=== PATIENT | male | born 1965 | race Caucasian/White ===

== ENCOUNTER 2024-02-09 13:33 | Inpatient (IN) | payer OTHER, SELFPAY ==
[2024-02-09] VITALS (10 sets, daily range): BP systolic 123–175; BP diastolic 77–98; BMI 26.6
[2024-02-09 08:32] LABS: Urine Albumin Negative (Neg - Trace); Urine Bilirubin Negative (Negative); Urine Character Clear (Clear); Urine Color Yellow; Urine Glucose Negative (Negative); Urine Ketone Trace (Negative); Urine Leukocyte Negative (Negative); Urine Nitrite Negative (Negative); Urine Occult Blood Negative (Negative); Urine Urobilinogen Negative (Neg - 1+)
--- NOTE | 2024-02-09 08:53 | ED.GENMED ---
History of Present Illness
General
Chief Complaint: Back Pain
Source: patient
Exam Limitations: none
Time Seen by Provider: 02/09/24 08:41
Nursing documentation reviewed up to this point in time: agreed with
History of Present Illness
History of Present Illness:
58-year-old male presents emergency department complaining of left flank pain several days ago, and no difficulty urinating. He has a history of kidney stones, and a kidney stone was seen on x-ray several weeks ago.
Past History
Past History
ED Past Medical History: Other (Kidney stones)
ED Past Surgical History: and Urological (Ureteroscopy and stone removal)
Review of Systems
Review of Systems
Allergies reviewed?: Yes
All Other Systems: Not applicable
Constitutional: Reports no symptoms; Denies fever
EENT: Reports no symptoms
Respiratory: Reports no symptoms
Cardiac: Reports no symptoms
ABD/GI: Reports no symptoms
: Reports flank pain, difficulty voiding and urgency
Musculoskeletal: Reports no symptoms
Skin: Reports no symptoms
Neurological: Reports no symptoms
Endocrine: Reports no symptoms
Hematologic/Lymphatic: Reports no symptoms
Psychiatric: Reports no symptoms
Phy Exam
Physical Exam
Physical Exam:
Physical Exam
General: no apparent distress, not acutely ill
Neck: supple. no meningeal signs. normal posterior pharynx
Heart: equal radial pulses.
HEENT: Pupils equal round reactive to light, EOMI
Lungs: no acute respiratory distress. clear bilaterally
Abdomen: normal bowel sounds. not tender. no CVAT, suprapubic tenderness, Kat in place draining over 600 mL yellow urine
Neuro: alert and oriented. no focal neurological deficits
Skin: no rash
Psychiatric: well kept. interactive and cooperative
Extremities: no edema. good distal pulses
Course
Orders/Labs/Results
Orders:
Orders
02/09/24 Breakfast
NPO
Allow oral meds: No
Allow clear liquids: No
02/09/24 08:22
Urinalysis Reflex To Culture Urgent
Date Specimen was Collected: 02/09/24
Time Specimen was Collected: 08:20
02/09/24 08:29
Lidocaine 2% [Lidocaine Uro-Jet 2%] 1 syringe .ROUTE .STK-MED ONE
02/09/24 08:51
CT Abd/pel Without Iv Or Oral Urgent
Comment:
Reason For Exam: left flank pain, urinary retention
02/09/24 09:32
IV Insert/Care/Rem.- Treatment PRN
02/09/24 09:41
Complete Blood Count/With Diff Urgent
Comprehensive Metabolic Panel Urgent
02/09/24 12:44
IRAD CONSULT Routine
Consulting Provider: Dank Casiano
Was physician already notified: Yes
Reason for Consult/Procedure: Left Nephrostomy
Acknowledgement that appropriate orders are entered: N/A
02/09/24 12:47
ColoRectal Surgery Consult Routine
Consulting Provider: Jorge Esquivel
Was physician already notified: Yes
UROLOGY CONSULT Routine
Consulting Provider: Ismael Miranda
Was physician already notified: Yes
02/09/24 12:51
Admit/Transfer Patient As Directed
Co-Sign Provider:
Level of Care: Inpatient admission
Assign to:: Medical/Surgical
Physician / Group: Josh
Diagnosis: Ureteral obstruction, Rectal Mass
Reason for Hospitalization: Nephrostomy tube, colonoscopy, rectal mass work-up
Expected length of stay greater than two midnights?: Yes
ELOS- Estimated Length of Stay in days: 3
I certify the patient meets the requirements for IP care: Yes
02/09/24 12:53
Code Status As Directed
Resuscitation Status: Full Code
Prothrombin Time Urgent
02/09/24 13:17
ECG [Electrocardiogram (*1)] Routine
Reason for Study: PreOp
02/09/24 Dinner
Clear Liquid
At Your Request: Full Participation
Does patient need a safe tray?: No
02/09/24 15:24
0.9% Sodium Chloride 1000 ml [Nss] 1,000 ml IV 75 mls/hr
Acetaminophen [Tylenol] 650 mg PO Q4HPRN PRN
02/09/24 15:24
Echo 2D MMode Color/Doppler Routine
Reason for Study: cardiac murmur
Activity As Directed
Activity Level: Out of Bed-Early Mobility
With Assistance
I&O [Intake/ Output] As Directed
Frequency: q12h
Pneumatic Compression Sleeves As Directed
Type: Knee high
Vital Signs As Directed
Frequency: Per unit guidelines
DX Deep Vein Thrombosis Video Routine
02/09/24 17:00
Colyte Peg Electrolyte Soln [Nulytely Solution] 4 liters PO ONCE ONE
02/10/24 Breakfast
NPO
Allow oral meds: Yes
Allow clear liquids: 4hrs prior to procedure
Comment: may have unrestricted clear liquid up to 4 hrs prior to scheduled procedure
Basic Metabolic Panel IN AM
CA 125 IN AM
CA 19-9 [S] IN AM
CEA IN AM
Complete Blood Count/No Diff IN AM
PSA, Total - Screen IN AM
Abnormal Lab Results
02/09/24 02/09/24 02/09/24
08:22 09:41 12:53
RBC 4.65 L 10^6/uL
(4.70-6.10)
Absolute Lymphs (auto) 1.0 L 10^3/uL
(1.2-3.4)
Absolute Monos (auto) 0.7 H 10^3/uL
(0.1-0.6)
Neutrophils % 77.3 H %
(42.2-75.2)
Lymphocytes % 12.9 L %
(20.5-51.1)
PT 15.0 H Sec
(11.4-14.6)
Glucose 108 H mg/dl
(70-99)
Urine Ketones Trace A
(Negative)
02/09/24 09:41
02/09/24 09:41
Vital Signs
Initial and Last Documented VS:
Initial Vital Signs
Temp Pulse Resp BP Pulse Ox
98.0 F 87 16 175/98 98
02/09/24 08:14 02/09/24 08:14 02/09/24 08:14 02/09/24 08:14 02/09/24 08:14
Last Documented Vital Signs
Temp Pulse Resp BP Pulse Ox
98.0 F 87 16 146/82 94
02/09/24 08:14 02/09/24 08:14 02/09/24 08:14 02/09/24 14:00 02/09/24 14:30
MDM/Problems Addressed
Differential Diagnosis Includes:
Kidney stone, urinary retention, metastatic colorectal cancer
MDM/Problems Addressed:
58-year-old male with left ureteral compression from likely metastatic colorectal cancer. Discussed with Dr. Esquivel, who will take patient for colonoscopy tomorrow. Discussed with Dr. Miranda, who recommend percutaneous nephrostomy. Admit to
hospitalist.
*Radiology
Radiology exam reviewed: radiology read reviewed (CT abdomen pelvis shows metastatic colorectal cancer, left sided hydronephrosis, compressed left ureter)
*Pulse Oximetry
Patient hypoxic: no
*EKG
Interpreted by ED Provider?: Yes
EKG Intrepretation Date: 02/09/24
EKG Intrepretation Time: 13:27
Interpretation: abnormal
Comparison EKG: no changes
Heart Rate: 80
Rate: normal
Rhythm: sinus
[place]: left axis deviation
Interval: normal interval
QRS Pattern: normal QRS
Ischemia: no ischemia
*Diabetes Physician Interpretation
Rate: normal
Interpretation: normal
Heart Rate: 82
Rhythm: sinus
*Critical Care Note
Total Time (30-74mins, 75-104mins- exclusive of procedures): Not Applicable
Patient Management
Social determinants of health affecting care: Living situation
Discussion with other providers: Hospitalist and Frog Farmer (urology and colorectal surgery)
Escalation/DeEscalation of care consider admission/obs:
admit indicated
ED Attending Note
-
Portions of this chart may have been created with voice recognition software.� Occasional wrong word or��sound alike� substitutions may have occurred due to the inherent limitations of voice recognition software.
Discharge Plan
Departure
Patient Disposition: Admit
Date of Disposition: 02/09/24
Time of Disposition: 12:11
Admit to: Med/Surg
Presentation/result/management discussed w/ accepting MD/DO: Hospitalist
Patient with high blood pressure during this ER visit?: Yes
Condition: Good
Discharge Problem:
Obstruction of left ureter, Malignant neoplasm of colorectal area with metastasis
Interventions
Interventions:
*Risk Screen - Suicide Last Done: 02/09/24 09:25
*Neglect/Abuse Screening Last Done: 02/09/24 09:25
ED- Fall Risk Assessment Last Done: 02/09/24 09:24
*ED COVID-19 Vaccine History Last Done: 02/09/24 08:14
ED-Musculoskeletal Assessment Last Done: 02/09/24 09:00
[2024-02-09 09:47] LABS: % Basophils 0.4 % (0-2); % Eosinophils 0.5 % (0-6); % Immature Granulocytes 0.3 % (0-0.5); % Lymphocytes 12.9 % (20.5-51.1); % Monocytes 8.6 % (1.7-9.3); % Neutrophils 77.3 % (42.2-75.2); Absolute Monocytes 0.7 10^3/uL (0.1-0.6); Absolute Neutrophils 6.1 10^3/uL (1.4-6.5); Hematocrit 40.5 % (39.0-52.0); Hemoglobin 14.3 g/dL (13.0-18.0); Mean Corp Hgb Conc. 35.3 g/dL (33.0-37.0); Mean Corpuscular Hgb 30.8 pg (27.0-31.0); Mean Corpuscular Volume 87.1 fL (80.0-94.0); Mean Platelet Volume 9.8 fL (7.4-10.4); Nucleated Red Blood Cells % 0 % (-); Platelet Count 223 10^3/uL (130-400); Red Blood Cell Count 4.65 10^6/uL (4.70-6.10); White Blood Cell Count 7.9 10^3/uL (4.8-10.8)
[2024-02-09 10:01] LABS: ALT (SGPT) 19 U/L (0-50); AST (SGOT) 32 U/L (17-59); Albumin 4.5 g/dl (3.5-5.0); Alkaline Phosphatase 117 U/L (38-126); Blood Urea Nitrogen 17 mg/dl (9-20); Calcium 9.6 mg/dl (8.4-10.2); Carbon Dioxide 25 mmol/L (22-30); Chloride 107 mmol/L (98-107); Estimated Creatinine Clearance 88 ml/min; Glucose 108 mg/dl (70-99); Sodium 140 mmol/L (135-145); Total Bilirubin 0.8 mg/dl (0.2-1.3); Total Protein 7.3 g/dl (6.3-8.2); eGFR > 60.00
--- NOTE | 2024-02-09 12:57 | HPS.HSE ---
Addendum entered and electronically signed by Bobo Moreno MD 02/09/24 14:15:
I saw and examined the patient.
The BENDING SHED WORKER or PA's note was reviewed and I agree with the note.
Comment: 58-year-old male came to the hospital with difficulty urinating and dysuria. CT scan done in the ED showed obstruction of distal left ureter likely due to neoplastic mass/lymphadenopathy. Findings in the rectum/rectal carcinoma with
extension into the mesorectal fascia. Seen by colorectal surgery in ED and plan for colonoscopy tomorrow. Urology recommended percutaneous nephrostomy. IR notified. Also some suspicion of invasion of the prostate gland as well. urology
consulted. check cancer markers in am. Kat placed in ED for urinary retention. mild systolic murmur, check echo.
Discussed with at bedside in detail.
General: Comfortable and Conversant
HEENT: Anicteric and Moist mucous membranes
Respiratory: Clear and Non Labored Respirations
Cardiac: S1/S2, Regular Rhythm and Murmur (2/6 Systolic Murmur heard best at right upper sternal border)
GI: Soft, Non Tender and Non Distended
Genito-urinary: Kat (Draining yellow urine)
Musculoskeletal: No Clubbing, No Cyanosis and No Edema
Neuro: Awake, Alert, Oriented and Nonfocal/grossly intact
Psych: Calm
I spent a total of 77 minutes with the patient or on the floor. More than 50% of this time involved counseling and coordination of care.
Original Note:
Family Physician
-
Family Physician: NOT KNOW UNKNOWN - PT DOES
Chief Complaint
-
Difficulty urinating
History of Present Illness
Patient is a 58-year-old male past medical history of nephrolithiasis who presents with difficulty urinating. Patient reports when he attempts to urinate the urine does not seem to flow as usual. He also reports significant pain with urination.
He also notes left mid back pain which began a few days ago. CT scan obtained in the emergency department shows extensive findings including obstruction of the distal left ureter as well as findings suggesting rectal carcinoma. Patient has a prior
history of cancer. He does not get routine preventative care, and denies prior colonoscopy. He denies weight loss or change in bowel habits.
Medical History
Past Medical History
Past Medical History: Reports None
Past Surgical History: Reports None
Social History
Tobacco: Non-smoker
Alcohol: Occasional
Family History
Family History: CAD
Allergies / Home Medications
Allergies reflects when Allergies were last updated in [email or web address].
Home Medications with original date entered in [email or web address]
Allergy/Medication List:
Allergies
Allergy/AdvReac Type Severity Reaction Status Date / Time
latex Allergy Rash Verified 02/09/24 08:15
NKA - No Known Allergies Allergy Unknown Uncoded 02/09/24 08:15
Home Medications
famotidine 20 mg tablet 20 mg PO DAILYPRN PRN acid reflux 02/09/24
fluticasone propionate 50 mcg/actuation nasal spray,suspension 2 spray intranasal DAILYPRN PRN congestion 02/09/24
ibuprofen 200 mg tablet (Motrin IB) 400 mg PO Q8H PRN mild pain 02/09/24
Review of Systems
-
A 12 point ROS was completed and negative except as noted: Yes
Constitutional: Denies Fever, Weight Loss or Chills
Respiratory: Denies Cough or Trouble Breathing
Cardiac: Denies Chest Pain or Palpitations
Abdomen/GI: Reports Other (Chronic loose stools); Denies Abdominal Pain
Physical Exam
Vital Signs
Vital Signs
Temp Pulse Resp BP Pulse Ox
98.0 F 87 16 123/86 94
02/09/24 08:14 02/09/24 08:14 02/09/24 08:14 02/09/24 12:00 02/09/24 12:30
Physical Exam
General: Comfortable and Conversant
HEENT: Anicteric and Moist mucous membranes
Respiratory: Clear and Non Labored Respirations
Cardiac: S1/S2, Regular Rhythm and Murmur (2/6 Systolic Murmur heard best at right upper sternal border)
GI: Soft, Non Tender and Non Distended
Genito-urinary: Kat (Draining yellow urine)
Musculoskeletal: No Clubbing, No Cyanosis and No Edema
Skin: Warm and Dry
Neuro: Awake, Alert, Oriented and Nonfocal/grossly intact
Psych: Calm
Laboratory Results
-
02/09/24 09:41
02/09/24 09:41
Laboratory Results
Total Bilirubin 0.8 mg/dl (0.2-1.3) 02/09/24 09:41
AST 32 U/L (17-59) 02/09/24 09:41
ALT 19 U/L (0-50) 02/09/24 09:41
Alkaline Phosphatase 117 U/L (38-126) 02/09/24 09:41
Data Reviewed
-
Lab Data: Labs Reviewed by me
Impression/Plan
-
Obstruction of Distal Left Ureter secondary to Lymphadenoma
-Consult Urology
-Plan for left percutaneous nephrostomy tube
Rectal Mass
-Consult colorectal surgery
-Plan for colonoscopy tomorrow
-Check tumor markers including CEA, CA 19-9 and CA 125
Cardiac Murmur
-Check Echo
DVT proph: SCDs
Code Status: Full Code
[2024-02-09 13:22] LABS: INR 1.17
--- NOTE | 2024-02-09 13:55 | CON.CRS ---
Consultation
-
Reason for Consultation: concern for rectal mass
Medical History
-
Chief Complaint: Left flank plain
History of Present Illness:
58-year-old male with a history of left-sided kidney stone in the past coming to the hospital with left flank discomfort and difficulty urinating. He admits to blood in his urine couple days ago. Vital signs and blood work are reasonable. CT scan
of the abdomen pelvis without contrast was performed today. I did review the images and report with Dr. Nilton ramirez of radiology. This unfortunately reveals a mass in the rectum involving the prostate anteriorly and potentially the mesorectal
fascia on the left side. There are also nearby enlarged lymph nodes of concern. There is no evidence for bowel obstruction. There are some lesions of the pelvis and vertebral column potentially concerning for metastatic disease. No obvious
metastases to the liver or the bases of the lungs however this is a noncontrast study. I was consulted for this reason. On discussion with the patient he denies blood in stools. Denies changes in bowel habits. Has bowel control. Denies nausea
or vomiting. Weight has been stable. No prior colonoscopies. No family history of colorectal cancer.
Past Medical History
Past Medical History: Other (kidney stones; GERD)
Past Surgical History: Urological (stones removal)
Social History
Tobacco: Non-Smoker
Alcohol: Occasional
Personal:
Living: With Family
Family History
Family History: Other (negative for CR cancer)
Allergies / Home Medications
Allergy/AdvReac Type Severity Reaction Status Date / Time
latex Allergy Rash Verified 02/09/24 08:15
NKA - No Known Allergies Allergy Unknown Uncoded 02/09/24 08:15
�Medication �Instructions �Recorded �Confirmed �Type
famotidine 20 mg tablet 20 mg PO DAILYPRN PRN acid reflux 02/09/24 02/09/24 History
fluticasone propionate 50 2 spray intranasal DAILYPRN PRN 02/09/24 02/09/24 History
mcg/actuation nasal congestion
spray,suspension
ibuprofen 200 mg tablet (Motrin IB) 400 mg PO Q8H PRN mild pain 02/09/24 02/09/24 History
Review of Systems
-
A 10 point review of systems was completed, and was negative except as per HPI.
Physical Exam
Vital Signs
Temp 98.0 F 02/09/24 08:14
Pulse 87 02/09/24 08:14
Resp Rate 16 02/09/24 08:14
Blood pressure 123/86 02/09/24 12:00
SaO2 94 02/09/24 12:30
02/08/24 02/09/24 02/10/24
06:59 06:59 06:59
Actual Weight 81.647 kg
Body Mass Index (BMI) 26.6
Lab Results / Allergies
02/09/24 09:41
02/09/24 09:41
WBC 7.9 10^3/uL (4.8-10.8) 02/09/24 09:41
Hgb 14.3 g/dL (13.0-18.0) 02/09/24 09:41
Hct 40.5 % (39.0-52.0) 02/09/24 09:41
Plt Count 223 10^3/uL (130-400) 02/09/24 09:41
Abs Immat Gran (auto) 0.0 10^3/uL (0-0.05) 02/09/24 09:41
Neutrophils % 77.3 % (42.2-75.2) H 02/09/24 09:41
Allergy/AdvReac Type Severity Reaction Status Date / Time
latex Allergy Rash Verified 02/09/24 08:15
NKA - No Known Allergies Allergy Unknown Uncoded 02/09/24 08:15
Physical Exam
General: Well Developed
HEENT: Normocephalic
Respiratory: Clear
GI: Soft, Non Tender and Non Distended
Rectal: Masses Palpated (? anteriorly at prostatic area partially firm and partially soft/not 'clear cut')
Musculoskeletal: No Clubbing, No Cyanosis and No Edema
Neuro: AO x 3
Psych: Calm
Data Reviewed
-
CT Scan: Image Personally Visualized and interpreted, Report Reviewed by me, Discussed with Physician (reviewed with Dr. Fox), Discussed with Patient and Discussed with Family
Labs: Labs Reviewed by me
Assessment / Plan
-
58-year-old male without significant medical history in ER with left flank discomfort and difficulty urinating. Imaging was found to have a probable mass of the rectum with concern for neoplasm. This appears to be involving the prostate
anteriorly, with secondary left ureteral obstruction, and perhaps involvement of the mesorectal fascia in particular in the left side. There are enlarged lymph nodes nearby and there is even evidence for possible bony metastases to the pelvis and
vertebral column. I am concerned with the possibility at least locally advanced if not metastatic rectal cancer. Distal rectal examination was hard to interpret. He has had no prior colonoscopies. I agree with plans to admit the patient to the
hospital service. Consideration for nephrostomy per urology. Clear liquid diet today. Agree with checking tumor markers. At this evening with plans for colonoscopy tomorrow afternoon by me. May ultimately need a CT of the chest abdomen and
pelvis with contrast as well as a pelvic MRI. All the above was discussed with the patient and his at the bedside. Detailed conversation was had. I discussed the risk and benefits of colonoscopy. Risk described included but not limited to
bleeding infection perforation missed lesion sampling error and anesthetic risk. He has agreed to proceed with the colonoscopy tomorrow. All questions answered. I would estimate that evaluating the patient, reviewing the imaging, communicating
with neurology, and coming up with a plan took about an hour and a half total.
--- NOTE | 2024-02-09 14:16 | W.PN.UPDATE ---
Update Note
Progress Note Update
For billing purposes only
[2024-02-09] MEDS: NSS 1000 IV (17:15)
[2024-02-09] MEDS: NULYTELY SOLUTION 4 LITERS PO (17:17)
--- NOTE | 2024-02-09 17:45 | W.PN.UPDATE ---
Addendum entered and electronically signed by Ismael Miranda MD 02/10/24 11:24:
PSA result 461 - markedly elevated c/w possible primary prostate cancer w/ lymphadenopathy and osseous metastases (noted on CT imaging 02/08).
CEA within normal limits.
- will consult Medical Oncology for evaluation and discussion of treatment options
- recommend starting tamsulosin 0.4 mg qhs
- plan for voiding trial in 24-48 hrs once tamsulosin initiated
D/w Dr. Moreno.
Original Note:
Update Note
Progress Note Update
Brief Urology Consult Note
58M with ~6 mo of left flank and abdominal pain (mild per patient) presenting w/ increasing left renal colic and weak urinary stream.
Noted hematuria in last couple of days.
Denies prior h/o voiding symptoms.
Prior urologic h/o left URS/LL/stone extraction/stent placement @ w/ a urologist ~20 yrs ago.
Per patient, he has not had regular F/U with a PCP for routine labs or screening colonoscopies.
Last available PSA 3.48 from 2011.
02/08: CTAP w/o IV contrast => rectal mass involving prostate anteriorly and potentially mesorectal fascia on left side w/ pathologically enlarged left pelvic lymph nodes, lesions in pelvis and vertebral column concerning for osseous metastases,
extrinsic compression upon distal left ureter within pelvis likely from neoplastic mass and/or lymphadenopathy.
Kat catheter placed in ER - clear yellow urine output noted.
CATHERINE - firm prostate gland w/o discrete nodules or tenderness
A/P:
Malignant extrinsic compression of distal left ureter w/ hydronephrosis
Non-obstructing left renal stone
Suspected locally advanced vs. metastatic rectal carcinoma w/ possible prostatic involvement and LAD/osseous metastases
- IR placement of left PCN discussed - given mild pain symptoms w/ normal renal function and no evidence of UTI, will defer at this time
- Maintain Kat catheter
- Start tamsulosin 0.4 mg qhs
- Bowel prep today for colonoscopy w/ CRS tomorrow
- Plan for voiding trial 24-48 hrs after colonoscopy
- PSA pending
- CEA pending
Urology following
Extensive discussion had w/ patient and spouse this afternoon regarding CT findings.
Reviewed risks, benefits, alternatives, and potential complications of obstructive uropathy and treatment options including retrograde stent placement (high failure rate in this clinical scenario) and PCN placement (by IR).
D/w IR (Dr. Casiano).
D/w CRS (Dr. Esquivel).
[2024-02-09] MEDS: TYLENOL 650 MG PO (18:05)
--- NOTE | 2024-02-09 18:09 | PTCARENOTE ---
Patient admitted from ER into room 412-01. Patient with stable Vital Signs. IVF started. Bowel prep started and patient understands directions on prep. Patient given Tylenol for penis discomfort. Echo completed. Patient's at bedside. Educated
patient on use of bed and TV controls and use of call blunt. Patient verbalizes understanding and denies questions at this time.
[2024-02-10] VITALS (7 sets, daily range): BP systolic 114–149; BP diastolic 64–80
[2024-02-10 07:05] LABS: Hematocrit 40.8 % (39.0-52.0); Mean Corp Hgb Conc. 34.3 g/dL (33.0-37.0); Mean Corpuscular Hgb 30.4 pg (27.0-31.0); Mean Corpuscular Volume 88.7 fL (80.0-94.0); Mean Platelet Volume 9.6 fL (7.4-10.4); Platelet Count 204 10^3/uL (130-400); Red Cell Dist. Width 12.7 % (11.5-14.5); White Blood Cell Count 9.3 10^3/uL (4.8-10.8)
[2024-02-10] MEDS: NSS 1000 IV (08:01)
[2024-02-10 08:04] LABS: Blood Urea Nitrogen 13 mg/dl (9-20); Calcium 9.4 mg/dl (8.4-10.2); Carbon Dioxide 22 mmol/L (22-30); Chloride 106 mmol/L (98-107); Estimated Creatinine Clearance 99 ml/min; Glucose 97 mg/dl (70-99); Sodium 137 mmol/L (135-145); eGFR > 60.00
[2024-02-10 08:28] LABS: CEA 1.48 ng/ml
--- NOTE | 2024-02-10 11:30 | CM ---
Patient seen bedside, initial assessment completed. Patient resides with his in a three story home, one step to enter. Patient denies DME, VN, or SNF history, is independent with ADLs/IADLS. Patient does not have a local PCP, typically will use
Urgent Care, is interested in list of local PCPS. Pharmacy used is [facility]: turn off the [place], confirms prescription coverage, denies food insecurities. Patient reports no needs to CM at this time, CM will continue to follow for all discharge planning needs and
be available to patient/family.
Plan; home no needs anticipated.
--- NOTE | 2024-02-10 11:44 | W.PN.HOSP.TC ---
Today's Communication/Plan
-
Monitor vital signs see plan
Manage Boykin per urology
Oncology consult
Colorectal following, colonoscopy today
Follow malignancy markers
Assessment / Plan
Assessment / Plan
General: Comfortable and Conversant
HEENT: Anicteric and Moist mucous membranes
Respiratory: Clear and Non Labored Respirations
Cardiac: S1/S2, Regular Rhythm and Murmur (2/6 Systolic Murmur heard best at right upper sternal border)
GI: Soft, Non Tender and Non Distended
Genito-urinary: [place] (Draining yellow urine)
Musculoskeletal: No Clubbing, No Cyanosis and No Edema
Neuro: Awake, Alert, Oriented and Nonfocal/grossly intact
Psych: Calm
Obstruction of Distal Left Ureter secondary to possible malignancy
s/p boykin in ED; urology managing
Nonobstructing left renal stone
Urology following, recommended oncology consultation
PSA elevated
Initial plan was for left percutaneous nephrostomy tube however urology spoke with the patient and plan to hold off on that for now. Continue with [place] catheter
Rectal Mass
Colorectal surgery following
-Plan for colonoscopy
-Check tumor markers including CEA wnl, CA 19-9 and CA 125 pending; PSA 461
Intermittent elevated blood pressure, no prior history
hydralazine as needed
Cardiac Murmur
-Echo with mild AAS, mild to moderate AR. Mild ascending aorta dilation
DVT proph: SCDs
Code Status: Full Code
I spent a total of 52 minutes with the patient or on the floor. More than 50% of this time involved counseling and coordination of care.
Anticipated Discharge: > 48 hours
Subjective/Interval History
-
Date of Service: February 10, 2024
denies pain
Objective Data
-
Labs:
Laboratory Results
02/10/24
06:56
WBC 9.3
Hgb 14.0
Hct 40.8
Plt Count 204
Sodium 137
Potassium 4.0
Chloride 106
Carbon Dioxide 22
BUN 13
Creatinine 0.8
Glucose 97
Calcium 9.4
Vital Signs:
Vital Signs
Temp Pulse Resp BP Pulse Ox
98.8 F 71 16 149/79 96
02/10/24 07:50 02/10/24 07:50 02/10/24 07:50 02/10/24 07:50 02/10/24 07:50
I&O
02/09/24 02/10/24 02/11/24
06:59 06:59 06:59
Intake Total 1260 / 1260
Output Total 1625 / 1625
Balance -365 / -365
--- NOTE | 2024-02-10 12:16 | CON.ONC ---
Impression
Impression
Pelvic mass with inguinal adenopathy
PSA 461
Plan
Plan
Would obtain biopsy to rule out synchronous adenocarcinoma of the rectum
PSA>100 is typically considered diagnostic for prostate carcinoma however given the ambiguity of the location would obtain tissue sample
Will need outpatient PSMA PET alkaline phosphatase in the normal range
Would consider RT, combination androgen blockade and consideration for early treatment with Taxotere ([place]) pending group grade
Will follow
Patient History
History of Present Illness
Patient is a 58-year-old male past medical history of nephrolithiasis who presents with difficulty urinating. Patient reports when he attempts to urinate the urine does not seem to flow as usual. He also reports significant pain with urination.
He also notes left mid back pain which began a few days ago. CT scan obtained in the emergency department shows extensive findings including obstruction of the distal left ureter as well as findings suggesting rectal carcinoma. Patient has a prior
history of cancer. He does not get routine preventative care, and denies prior colonoscopy. He denies weight loss or change in bowel habits.
Past-Medical/Surgical History
Past Medical History
Past Medical History: Reports None
Past Surgical History: Reports None
Social History
Tobacco: Non-smoker
Alcohol: Occasional
Family History
Family History: CAD
Patient Medication
�Medication �Instructions �Recorded �Confirmed �Last Taken �Type
famotidine 20 mg tablet 20 mg PO DAILYPRN PRN acid reflux 02/09/24 02/09/24 Unknown History
fluticasone propionate 50 2 spray intranasal DAILYPRN PRN 02/09/24 02/09/24 Unknown History
mcg/actuation nasal congestion
spray,suspension
ibuprofen 200 mg tablet (Motrin IB) 400 mg PO Q8H PRN mild pain 02/09/24 02/09/24 02/08/24 History
Active Medications
Generic Name Dose Route Start Last Admin
Trade Name Freq PRN Reason Stop Dose Admin
Acetaminophen 650 mg 02/09/24 15:24 02/09/24 18:05
Acetaminophen 325 Mg Tablet PO 03/08/24 15:23 650 mg
Q4HPRN PRN Administration
mild pain/ fever>100.5F
Hydralazine HCl 5 mg 02/09/24 14:13
Hydralazine 20 Mg/Ml Vial IV 03/08/24 14:12
Q6HPRN PRN
SBP>160
Sodium Chloride 1,000 mls @ 75 mls/hr 02/09/24 15:24 02/10/24 08:01
Nss IV 1,000 mls
[id number] BAO Administration
Sodium Chloride 0 flush 02/09/24 16:00
Sodium Chloride 0.9% (Flush) Syringe IV 03/08/24 15:59
PER PROTOCOL BAO
Review of Systems
-
12 point review of systems fails to elicit additional complaints other than those reviewed in the HPI
Physical Exam
-
Physical Exam
General: Comfortable and Conversant
HEENT: Anicteric and Moist mucous membranes
Respiratory: Clear and Non Labored Respirations
Cardiac: S1/S2, Regular Rhythm and Murmur (2/6 Systolic Murmur heard best at right upper sternal border)
GI: Soft, Non Tender and Non Distended
Genito-urinary: Kat (Draining yellow urine)
Musculoskeletal: No Clubbing, No Cyanosis and No Edema
Skin: Warm and Dry
Neuro: Awake, Alert, Oriented and Nonfocal/grossly intact
Psych: Calm
Labs
Lab Results
WBC 9.3 10^3/uL (4.8-10.8) 02/10/24 06:56
RBC 4.60 10^6/uL (4.70-6.10) L 02/10/24 06:56
Hgb 14.0 g/dL (13.0-18.0) 02/10/24 06:56
Hct 40.8 % (39.0-52.0) 02/10/24 06:56
MCV 88.7 fL (80.0-94.0) 02/10/24 06:56
MCH 30.4 pg (27.0-31.0) 02/10/24 06:56
MCHC 34.3 g/dL (33.0-37.0) 02/10/24 06:56
RDW 12.7 % (11.5-14.5) 02/10/24 06:56
Plt Count 204 10^3/uL (130-400) 02/10/24 06:56
MPV 9.6 fL (7.4-10.4) 02/10/24 06:56
Abs Immat Gran (auto) 0.0 10^3/uL (0-0.05) 02/09/24 09:41
Absolute Neuts (auto) 6.1 10^3/uL (1.4-6.5) 02/09/24 09:41
Absolute Lymphs (auto) 1.0 10^3/uL (1.2-3.4) L 02/09/24 09:41
Absolute Monos (auto) 0.7 10^3/uL (0.1-0.6) H 02/09/24 09:41
Absolute Eos (auto) 0.0 10^3/uL (0-0.7) 02/09/24 09:41
Absolute Basos (auto) 0.0 10^3/uL (0-0.2) 02/09/24 09:41
Immature Gran % 0.3 % (0-0.5) 02/09/24 09:41
Neutrophils % 77.3 % (42.2-75.2) H 02/09/24 09:41
Lymphocytes % 12.9 % (20.5-51.1) L 02/09/24 09:41
Monocytes % 8.6 % (1.7-9.3) 02/09/24 09:41
Eosinophils % 0.5 % (0-6) 02/09/24 09:41
Basophils % 0.4 % (0-2) 02/09/24 09:41
Creatinine 0.8 mg/dL (0.7-1.3) 02/10/24 06:56
Vital Signs
Vital Signs
Temp Pulse Resp BP Pulse Ox
98.8 F 71 16 149/79 96
02/10/24 07:50 02/10/24 07:50 02/10/24 07:50 02/10/24 07:50 02/10/24 07:50
--- NOTE | 2024-02-10 14:38 | W.PN.UPDATE ---
Update Note
Progress Note Update
Colonoscopy complete. No obvious intraluminal rectal mass but anterior firm palpable mass noted on CATHERINE (probably prostate). 3 small polyps (cecum, R colon, sigmoid) removed; diverticulosis noted. With his PSA elevation and normal CEA in addition
to above findings--I believe this is a urology issue.
[2024-02-10] MEDS: TYLENOL 650 MG PO (17:07)
[2024-02-10] MEDS: NSS IV (17:11)
[2024-02-10 18:50] LABS: CA 125 15.3 U/mL (0-35)
[2024-02-11 07:35] VITALS: BP 145/83
[2024-02-11] MEDS: NSS IV (08:11)
[2024-02-11 08:14] LABS: % Basophils 0.4 % (0-2); % Immature Granulocytes 0.4 % (0-0.5); % Lymphocytes 15.8 % (20.5-51.1); % Monocytes 9.2 % (1.7-9.3); % Neutrophils 72.2 % (42.2-75.2); Absolute Eosinophils 0.2 10^3/uL (0-0.7); Absolute Lymphocytes 1.3 10^3/uL (1.2-3.4); Absolute Monocytes 0.7 10^3/uL (0.1-0.6); Absolute Neutrophils 5.7 10^3/uL (1.4-6.5); Hematocrit 40.3 % (39.0-52.0); Hemoglobin 13.6 g/dL (13.0-18.0); Mean Corp Hgb Conc. 33.7 g/dL (33.0-37.0); Mean Corpuscular Hgb 29.8 pg (27.0-31.0); Mean Corpuscular Volume 88.4 fL (80.0-94.0); Mean Platelet Volume 9.9 fL (7.4-10.4); Nucleated Red Blood Cells % 0 % (-); Platelet Count 201 10^3/uL (130-400); Red Blood Cell Count 4.56 10^6/uL (4.70-6.10); Red Cell Dist. Width 12.7 % (11.5-14.5); White Blood Cell Count 7.9 10^3/uL (4.8-10.8)
--- NOTE | 2024-02-11 08:48 | W.PN.CRS1 ---
Today's Communication / Plan
-
s/o
Assessment/Plan
-
POD#1 colonoscopy
1. Mass on colonoscopy consistent with prostate cancer (no rectal mass found). Several polyps removed.
2. Will defer further care to urology/oncology.
3. Our office will call with results from colonoscopy.
4. Will sign off, please call with any concerns.
Subjective Data
Subjective Data
Date of Service: February 11, 2024
Patient states he has no complaints. He has no nausea or vomiting. He is tolerating a diet.
Objective Data
-
Vital Signs
Temp Pulse Resp BP Pulse Ox
98.7 F 70 20 132/74 97
02/10/24 23:31 02/10/24 23:31 02/10/24 23:31 02/10/24 23:31 02/10/24 23:31
Intake & Output
02/10/24 02/11/24 02/12/24
06:59 06:59 06:59
Intake Total 1260 / 1260 960 / 960
Output Total 1625 / 1625 1450 / 1450
Balance -365 / -365 -490 / -490
Intake:
Oral fluids 360 / 360 960 / 960
IV fluids (Total) 900 / 900
Output:
Urine, Kat 1625 / 1625 1450 / 1450
Other:
Number of unmeasured liquid
stools
Rectum 15
Lab Results
02/11/24 07:29
Physical Exam
-
General: No Acute Distress and AOx3
Abdomen: Soft, Non Distended and Non Tender
Skin: Warm and Dry
[2024-02-11 09:04] LABS: Blood Urea Nitrogen 12 mg/dl (9-20); Calcium 8.9 mg/dl (8.4-10.2); Carbon Dioxide 24 mmol/L (22-30); Chloride 105 mmol/L (98-107); Estimated Creatinine Clearance 99 ml/min; Glucose 94 mg/dl (70-99); Potassium 4.1 mmol/L (3.5-5.1); Sodium 136 mmol/L (135-145); eGFR > 60.00
[2024-02-11] MEDS: TYLENOL 650 MG PO ×2 (10:48→18:37)
--- NOTE | 2024-02-11 10:55 | W.PN.HOSP.TC ---
Addendum entered and electronically signed by Bobo Moreno MD 02/11/24 13:08:
Now per urology patient will keep his boykin and Dr Murray will see him in office wednesday for possible removal. cw flomax
Original Note:
Today's Communication/Plan
-
Monitor vital signs and see plan
Oncology to see today
Spoke with Dr. Murray, he will see patient later today. Plan for possible Boyikn removal tomorrow. Flomax started
Assessment / Plan
Assessment / Plan
General: Comfortable and Conversant
HEENT: Anicteric and Moist mucous membranes
Respiratory: Clear and Non Labored Respirations
Cardiac: S1/S2, Regular Rhythm and Murmur (2/6 Systolic Murmur heard best at right upper sternal border)
GI: Soft, Non Tender and Non Distended
Genito-urinary: Boykin (Draining yellow urine)
Musculoskeletal: No Clubbing, No Cyanosis and No Edema
Neuro: Awake, Alert, Oriented and Nonfocal/grossly intact
Psych: Calm
Obstruction of Distal Left Ureter secondary to possible malignancy
Acute urinary retention secondary to above
s/p boykin in ED; urology managing
Nonobstructing left renal stone
Urology following, recommended oncology consultation; oncology now following, appears could be prostate primary. per dr murray this is non surgical. will await further onc recs
PSA elevated
Initial plan was for left percutaneous nephrostomy tube however urology spoke with the patient and plan to hold off on that for now. Continue with Boykin catheter. started flomax; plan for possible removal of boykin tomorrow per urology
Rectal Mass
Colorectal surgery following
-s/p cscope. appears could be 2/2 prostate primary. will await pathology report.
-Check tumor markers including CEA wnl, CA 19-9 pending and CA 125 wnl; PSA 461
Intermittent elevated blood pressure, no prior history
hydralazine as needed
Cardiac Murmur
-Echo with mild AAS, mild to moderate AR. Mild ascending aorta dilation
DVT proph: SCDs
Code Status: Full Code
I spent a total of 51 minutes with the patient or on the floor. More than 50% of this time involved counseling and coordination of care.
Anticipated Discharge: Within 24 hours
Subjective/Interval History
-
Date of Service: February 11, 2024
denies nausea
Objective Data
-
Labs:
Laboratory Results
02/11/24
07:29
WBC 7.9
Hgb 13.6
Hct 40.3
Plt Count 201
Sodium 136
Potassium 4.1
Chloride 105
Carbon Dioxide 24
BUN 12
Creatinine 0.8
Glucose 94
Calcium 8.9
Vital Signs:
Vital Signs
Temp Pulse Resp BP Pulse Ox
99.4 F 70 18 145/83 96
02/11/24 07:35 02/11/24 07:35 02/11/24 07:35 02/11/24 07:35 02/11/24 07:35
I&O
02/10/24 02/11/24 02/12/24
06:59 06:59 06:59
Intake Total 1260 / 1260 960 / 960
Output Total 1625 / 1625 1450 / 1450
Balance -365 / -365 -490 / -490
[2024-02-11] MEDS: FLOMAX 0.400000000000000022 MG PO (11:17)
[2024-02-11 11:26] VITALS: BP 135/73
--- NOTE | 2024-02-11 11:31 | PTCARENOTE ---
Patient started on Flomax. BP stable. Patient given written teaching sheet on Flomax.
--- NOTE | 2024-02-11 13:16 | W.PN.URO.CBU ---
Today's Communication / Plan
-
No indication for left PCN (or left ureteral stent at this time) - observation
Continue tamsulosin 0.4 mg qhs (started) on discharge
F/U with Dr. Miranda @830 on Wed02/14/24 for catheter removal in office
F/U with Medical Oncology to discuss/initiate multi-modal therapy (ADT, XRT, docetaxel chemotherapy)
Assessment / Plan
-
Acute urinary retention
Elevated PSA of 461 - suspected metastatic prostate cancer
Pelvis mass with lymphadenopathy
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
WBC WNL
Cr WNL (0.8)
UA negative
02/08: CTAP w/o IV contrast => rectal mass involving prostate anteriorly and potentially mesorectal fascia on left side w/ pathologically enlarged left pelvic lymph nodes, lesions in pelvis and vertebral column concerning for osseous metastases,
extrinsic compression upon distal left ureter within pelvis likely from neoplastic mass and/or lymphadenopathy.
Diagnosis
-
Date of Service: February 11, 2024
-
Patient Diagnosis:
Acute urinary retention
Elevated PSA of 461 - suspected metastatic prostate cancer
Pelvis mass with lymphadenopathy
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
Subjective
-
Notes intermittent catheter bother from silicone catheter (latex allergy) - urine clear.
Anxious this admission - eager to start treatment plan.
Decreased left flank/abdominal pain today.
Tolerating diet w/o issues.
+BMs.
Objective
-
Vital Signs
Temp Pulse Resp BP Pulse Ox
99.4 F 73 18 135/73 96
02/11/24 07:35 02/11/24 11:26 02/11/24 07:35 02/11/24 11:26 02/11/24 07:35
Intake and Output
02/10/24 02/11/24 02/12/24
06:59 06:59 06:59
Intake Total 1260 / 1260 960 / 960
Output Total 1625 / 1625 1450 / 1450
Balance -365 / -365 -490 / -490
Intake:
Oral fluids 360 / 360 960 / 960
IV fluids (Total) 900 / 900
Output:
Urine, Kat 1625 / 1625 1450 / 1450
Other:
Number of unmeasured liquid
stools
Rectum 15
Laboratory Results
02/11/24 07:29
02/11/24 07:29
Physical Exam
-
General - well developed, well nourished, no acute distress
Abdomen - soft, non-tender, non-tender
Genitalia - normal, Kat catheter w/ clear yellow UOP
Skin - warm & dry with no rash
Neuro - AOx3, no motor deficits
Extremities - no clubbing, no cyanosis, no edema
Counseling
-
Extensive discussion had w/ patient and spouse for 50 min today regarding overall plan of care including multi-modal therapy and coordination of Medical Oncology, Radiation Oncology, Urology.
Patient and very appreciative of explanation of care plan.
Care Review
Data Reviewed
Discussed with: Hospitalist, Nursing and Family
CT Scan: Report Pers Reviewed and Image Pers Reviewed
Total Time Spent with Patient (in minutes): 50
--- NOTE | 2024-02-11 13:52 | CM ---
SIMI met with David today prior to discharge. He is returning home with his who will provide transport home.
David had previously advised that he did not have a local PCP. List of local PCPs provided to David. He understands that not all physicians on that list are accepting new patients.
Plan: Discharge to home with no needs. David will follow up to find a local PCP to establish care.
--- NOTE | 2024-02-11 15:19 | W.PN.ONC2 ---
Today's Communication / Plan
-
- start bicalutamide 50 mg daily.
- close oncology follow up to be arranged.
Impression
Impression
Pelvic mass with inguinal adenopathy
PSA 461
Plan
Plan
underwent colonoscopy 02/09, no obvious rectal mass seen, several benign appearing polyps removed. Can discuss with urology regarding obtaining tissue more for molecular testing reasons than prostate cancer as PSA>100 is typically considered
diagnostic for prostate carcinoma. Based on imaging he has stage IV disease with lymph node and possibly bone involvement. Will arrange for outpt PSMA PET/CT to complete staging.
I had detailed discussion with patient and today regarding diagnosis of at least locally advanced prostate cancer. I will start him on Biclutamide 50 mg daily now in anticipation for starting ADT in the office in upcoming weeks. Please provide
script on discharge.
Even if bone involvement confirmed I feel he would benefit from addition of radiation to his management to due to extent of local disease with ureteral obstruction, suspected rectal invasion. We can arrange for radiation-oncology eval as outpt.
Subjective/Objective
Chief Complaint
urinary retention with pelvic mass involving prostate, rectum, pelvic adenopathy, elevated PSA
Subjective
pt has no new complaints today. He still has boykin in place with plan to keep on discharge. He denies new pain, hematuria. he notes anxiety.
Vital Signs:
Vital Signs
Temp Pulse Resp BP Pulse Ox
99.4 F 73 18 135/73 96
02/11/24 07:35 02/11/24 11:26 02/11/24 07:35 02/11/24 11:26 02/11/24 07:35
Lab Results:
Laboratory Data
WBC 7.9 10^3/uL (4.8-10.8) 02/11/24 07:29
Hgb 13.6 g/dL (13.0-18.0) 02/11/24 07:29
Plt Count 201 10^3/uL (130-400) 02/11/24 07:29
PT 15.0 Sec (11.4-14.6) H 02/09/24 12:53
INR 1.17 02/09/24 12:53
eGFR > 60.00 02/11/24 07:29
Physical Exam
HEENT: Moist Mucous Membranes; No Jaundice
Pulmonary: Clear
GI: No Distended
Extremities: No Edema
Neuro: Non Focal
Review of Systems
Review of Systems
Constitutional: Denies Fever
Cardiovascular: Denies Chest Pain
Genitourinary: Denies Hematuria
Neurological: Denies Headache
Orders
Orders
Orders From Last 24 Hours
02/11/24 16:00
Bicalutamide [Casodex] 50 mg PO DAILY
[2024-02-11 15:40] VITALS: BP 143/77
[2024-02-11] MEDS: CASODEX PO ×2 (16:30→17:27)
[2024-02-11] MEDS: REFRESH EYE DROPS (PF) 1 DROPS OPHTH ×2 (18:36→21:01)
[2024-02-11 18:47] LABS: CA 19-9 8 U/mL (<=35)
--- NOTE | 2024-02-11 18:53 | PTCARENOTE ---
Patient refused to take Casodex. Patient and concerned with side effects. Explained to patient the reason for the medication and given written teaching sheet.
--- NOTE | 2024-02-11 18:57 | PTCARENOTE ---
Patient with complaints of itching eyes. Both sclera red. MD notified and artificial tears ordered and given.
[2024-02-11 23:52] VITALS: BP 137/72
[2024-02-12 07:19] LABS: % Basophils 0.5 % (0-2); % Eosinophils 2.7 % (0-6); % Immature Granulocytes 0.5 % (0-0.5); % Lymphocytes 20.6 % (20.5-51.1); % Monocytes 9.6 % (1.7-9.3); % Neutrophils 66.1 % (42.2-75.2); Absolute Eosinophils 0.2 10^3/uL (0-0.7); Absolute Lymphocytes 1.6 10^3/uL (1.2-3.4); Absolute Monocytes 0.8 10^3/uL (0.1-0.6); Absolute Neutrophils 5.2 10^3/uL (1.4-6.5); Hematocrit 38.3 % (39.0-52.0); Hemoglobin 13.4 g/dL (13.0-18.0); Mean Corpuscular Hgb 30.2 pg (27.0-31.0); Mean Corpuscular Volume 86.5 fL (80.0-94.0); Mean Platelet Volume 9.6 fL (7.4-10.4); Nucleated Red Blood Cells % 0 % (-); Platelet Count 214 10^3/uL (130-400); Red Blood Cell Count 4.43 10^6/uL (4.70-6.10); Red Cell Dist. Width 12.6 % (11.5-14.5); White Blood Cell Count 7.9 10^3/uL (4.8-10.8)
[2024-02-12 07:25] VITALS: BP 143/75
[2024-02-12 07:47] LABS: Blood Urea Nitrogen 12 mg/dl (9-20); Calcium 9.2 mg/dl (8.4-10.2); Carbon Dioxide 25 mmol/L (22-30); Chloride 106 mmol/L (98-107); Estimated Creatinine Clearance 88 ml/min; Glucose 103 mg/dl (70-99); Sodium 138 mmol/L (135-145); eGFR > 60.00
--- NOTE | 2024-02-12 08:49 | W.PN.HOSP.TC ---
Addendum entered and electronically signed by Rubina Murrell MD 02/12/24 11:59:
total DC time 40 min
Original Note:
Today's Communication/Plan
-
see A/P
Assessment / Plan
Assessment / Plan
A/P:
# Obstruction of Distal Left Ureter secondary to possible malignancy
# Acute urinary retention secondary to above
# Nonobstructing left renal stone
s/p boykin in ED; urology managing
oncology following, appears could be prostate primary. PSA elevated
Initial plan was for left percutaneous nephrostomy tube however urology spoke with the patient and plan to hold off on that for now. Continue with Boykin catheter. Cont flomax. Plan for outpt voiding trial with Dr Miranda ([place] on Wed02/14/24)
Started bicalutamide 50 mg daily per onc. F/U with Onc to discuss/initiate multi-modal therapy (ADT, XRT, docetaxel chemotherapy)
# Rectal Mass ruled out
s/p cscope. appears could be 2/2 prostate primary.
path noted Sessile serrated lesions and hyperplastic polyp
tumor markers CEA wnl, CA 19-9 wnl, CA 125 wnl; PSA 461
# Intermittent elevated blood pressure, no prior history
hydralazine as needed
# Cardiac Murmur
Echo with mild AAS, mild to moderate AR. Mild ascending aorta dilation
DVT proph: SCDs
Code Status: Full Code
DW in person
Anticipated Discharge: Today
Subjective/Interval History
-
Date of Service: February 12, 2024
Objective Data
-
Labs:
Laboratory Results
02/12/24
06:53
WBC 7.9
Hgb 13.4
Hct 38.3 L
Plt Count 214
Sodium 138
Potassium 4.0
Chloride 106
Carbon Dioxide 25
BUN 12
Creatinine 0.9
Glucose 103 H
Calcium 9.2
Vital Signs:
Vital Signs
Temp Pulse Resp BP Pulse Ox
37.1 C 60 14 143/75 95
02/12/24 07:25 02/12/24 07:25 02/12/24 07:25 02/12/24 07:25 02/12/24 07:25
I&O
02/11/24 02/12/24 02/13/24
06:59 06:59 06:59
Intake Total 960 / 960 1200 / 1200
Output Total 1450 / 1450 800 / 800
Balance -490 / -490 400 / 400
Review of Systems
-
All other systems: Reviewed and negative
Physical Exam
-
General: Well Developed, Well Nourished, No Apparent Distress, Comfortable and Conversant; Negative Respiratory Distress
HEENT: Normocephalic, Atraumatic, Nose Appears Normal and Ears Appear Normal; Negative Oxygen
Respiratory: Clear to Auscultation and Non Labored Respirations; Negative Accessory Resp Muscle Use
Cardiac: Regular Rhythm and S1/S2
GI: Soft, Nontender, Nondistended and Normal Bowel Sounds
Genito-urinary: Boykin
Skin: Warm and Dry
Neuro: Awake, Alert, Oriented and AO x 3
Psych: Calm and Intact Judgement/Insight
Data Reviewed
-
Labs: Labs Reviewed by me
[2024-02-12] MEDS: FLOMAX 0.400000000000000022 MG PO (10:32)
[2024-02-12] MEDS: CASODEX 50 MG PO (10:32)
[2024-02-12] MEDS: REFRESH EYE DROPS (PF) 1 DROPS OPHTH (10:32)
--- NOTE | 2024-02-12 11:19 | PTCARENOTE ---
Provided pt with written, verbal, and demonstrated how to switch from leg bag to large drainage bag for his urinary catheter. Pt demonstrated proper technique for caring for his catheter as well as increased hygiene. Provided pt with extra supplies
for home.
--- NOTE | 2024-02-12 11:19 | W.PN.URO.CBU ---
Today's Communication / Plan
-
readyfor d/c
Assessment / Plan
-
Acute urinary retention
Elevated PSA of 461 - suspected metastatic prostate cancer
Pelvis mass with lymphadenopathy
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
WBC WNL
Cr WNL (0.8)
UA negative
02/08: CTAP w/o IV contrast => rectal mass involving prostate anteriorly and potentially mesorectal fascia on left side w/ pathologically enlarged left pelvic lymph nodes, lesions in pelvis and vertebral column concerning for osseous metastases,
extrinsic compression upon distal left ureter within pelvis likely from neoplastic mass and/or lymphadenopathy.
Diagnosis
-
Date of Service: February 12, 2024
-
Patient Diagnosis:
Post Op Day:
Patient Diagnosis:
Acute urinary retention
Elevated PSA of 461 - suspected metastatic prostate cancer
Pelvis mass with lymphadenopathy
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
Subjective
-
hates boykin
Objective
-
Vital Signs
Temp Pulse Resp BP Pulse Ox
98.8 F 60 14 143/75 95
02/12/24 07:25 02/12/24 07:25 02/12/24 07:25 02/12/24 07:25 02/12/24 07:25
Intake and Output
02/11/24 02/12/24 02/13/24
06:59 06:59 06:59
Intake Total 960 / 960 1200 / 1200
Output Total 1450 / 1450 800 / 800 250 / 250
Balance -490 / -490 400 / 400 -250 / -250
Intake:
Oral fluids 960 / 960 1200 / 1200
Output:
Urine, Boykin 1450 / 1450 800 / 800 250 / 250
Laboratory Results
02/12/24 06:53
02/12/24 06:53
Review of Systems
-
: Difficulty Voiding
Physical Exam
-
General - well developed, well nourished, no acute distress
Chest - clear bilaterally
Abdomen - soft, non-tender, positive bowel sounds, no CVAT, no incisional pain or distention
Genitalia - normal
Rectal - normal
Skin - warm & dry with no rash
Neuro - AOx3, no motor deficits
Extremities - no clubbing, no cyanosis, no edema
Incision - clean, dry
Dressing - clean, dry, intact
Care Review
Data Reviewed
Discussed with: Family
CT Scan: Image Pers Reviewed
[2024-02-12] MEDS: TYLENOL 650 MG PO (11:26)
--- NOTE | 2024-02-12 11:42 | W.DCSUMMARY ---
Discharge Summary
Discharge Data
Date of Admission: 02/09/24
Date of Discharge: 02/12/24
-
Pending Results: No
Hospital Course
Principal Diagnosis:
Obstruction of Distal Left Ureter secondary to possible prostate cancer
Acute urinary retention secondary to above
Cardiac Murmur with Echo showing mild aortic stenosis, mild to moderate aortic regurgitation.
Chronic Diagnoses:�
Nonobstructing left renal stone
Ruled out rectal mass
Consultations:�
Colorectal surgery
Urology
Oncology
Procedures:�
Colonoscopy
Clinical course:�
This is a 58-year-old male, who presented with difficulty with urination and dysuria.
Problem 1:
Obstruction of Distal Left Ureter secondary to possible prostate cancer.
Acute urinary retention secondary to above.
Kat catheter was placed in the emergency room.
The patient can follow-up with urology outpatient for voiding trial.
His PSA was noted to be elevated at 400, hence it was felt that his left ureter obstruction was due to possible prostate cancer.
Patient was seen by oncology while in the hospital, and was started with bicalutamide 50 mg daily per oncology.
He can continue with Flomax per urology.
The patient has been informed to follow-up with oncology to discuss multimodal therapy to address his possible prostate cancer.
Problem 2:
Rectal mass ruled out.
Patient underwent C-scope, and his C-scope suggested the obstruction to be primary prostate.
His path from C scope noted sessile serrated lesions and hyperplastic polyp. He can follow up with GI for eval of follow up C scope.
Of note, his tumor markers CEA, CA 19-9, CA 125 were all within normal limit.
His PSA was high at 461.
As for the rest of his medical problems, they were stable during his hospital stay.
Discharge Plan
-
Patient Disposition: Home (Routine Discharge)
Discharge Diagnosis/Procedures: Obstruction of Distal Left Ureter secondary to possible malignancy/suspect prostate cancer
Condition: Good
Diet: As tolerated
Activity: As tolerated
Driving Restrictions: As prior to admission
Bathing Restrictions: None
Activity Restrictions/Additional Instructions:
Follow up with Oncology
Follow up with Urology
Follow-up with gastroenterology for your sessile serrated adenoma noted on C-scope
Referrals:
David Steven, [Active] -
Ismael Miranda MD [Active] - 02/14/24 (Please follow up with Dr. Miranda at 8:30 AM on Wednesday morning 02/14/24 for Kat catheter removal.)
UNKNOWN - PT DOES,NOT KNOW [Family Provider] - in less than 1 week
Prescriptions:
New
tamsulosin 0.4 mg Capsule
0.4 mg PO DAILY Qty: 30 0RF
bicalutamide 50 mg Tablet
50 mg PO DAILY Qty: 30 0RF
Continued
famotidine 20 mg Tablet
20 mg PO DAILYPRN PRN (Reason: acid reflux)
ibuprofen [Motrin IB] 200 mg Tablet
400 mg PO Q8H PRN (Reason: mild pain)
fluticasone propionate 50 mcg/actuation [place],Suspension
2 spray INTRANASAL DAILYPRN PRN (Reason: congestion)
Discharge Orders:
Discharge Patient (As Directed); Ordered 02/12/24
Ordered By: Rubina Murrell
Discharge Date and Time
Print Language: [place]
--- NOTE | 2024-02-12 12:14 | CM ---
Patient see bedside with , reports no needs to CM upon discharge. Patient confirms he has a list of PCPs. Patient to provide transportation home. CM will continue to follow for all discharge planning needs.
Plan; home no needs.
[2024-02-12 12:30] VITALS: BP 147/83
--- NOTE | 2024-02-12 22:07 | W.PN.ONC2 ---
Today's Communication / Plan
-
We will arrange outpt f/u with Dr. Steven.
We will also arrange:
- Rad Onc eval - [place]/[facility]
- PSMA scan
- Lupron
- Urology outpt referral for prostate bx, obtain tissue for NGS
- Refer to Genetic Counseling for germline mutation testing.
No objection to D/C.
Impression
Impression
Pelvic mass with inguinal adenopathy
PSA 461
Plan
Plan
underwent colonoscopy 02/09, no obvious rectal mass seen, several benign appearing polyps removed. Can discuss with urology regarding obtaining tissue more for molecular testing reasons than prostate cancer as PSA>100 is typically considered
diagnostic for prostate carcinoma. Based on imaging he has stage IV disease with lymph node and possibly bone involvement. Will arrange for outpt PSMA PET/CT to complete staging.
I had detailed discussion with patient and today regarding diagnosis of at least locally advanced prostate cancer. I will start him on Biclutamide 50 mg daily now in anticipation for starting ADT in the office in upcoming weeks. Please provide
script on discharge.
Even if bone involvement confirmed I feel he would benefit from addition of radiation to his management to due to extent of local disease with ureteral obstruction, suspected rectal invasion. We can arrange for radiation-oncology eval as outpt.
Subjective/Objective
Chief Complaint
Heme/Onc follow up of probable met prostate cancer
Subjective
Pt was seen this morning, this note is a late entry.
Feels well, denies physical complaint, feels overwhelmed.
Vital Signs:
Vital Signs
Temp Pulse Resp BP Pulse Ox
98.7 F 93 18 147/83 95
02/12/24 12:30 02/12/24 12:30 02/12/24 12:30 02/12/24 12:30 02/12/24 12:30
Lab Results:
Laboratory Data
WBC 7.9 10^3/uL (4.8-10.8) 02/12/24 06:53
Hgb 13.4 g/dL (13.0-18.0) 02/12/24 06:53
Plt Count 214 10^3/uL (130-400) 02/12/24 06:53
PT 15.0 Sec (11.4-14.6) H 02/09/24 12:53
INR 1.17 02/09/24 12:53
eGFR > 60.00 02/12/24 06:53
Physical Exam
Awake, alert, non-toxic
== END 2024-02-12 12:57 | disposition home or self-care (01) | DRG 723 ==
LOC: 4 EAST ACU 13:33
PROVIDERS: Physician Assistant Medical; ADMITTING PHYSICIAN Internal Medicine; ATTENDING PHYSICIAN Internal Medicine; CONSULT PHYSICIAN Internal Medicine Hematology & Oncology; CONSULT PHYSICIAN Surgery; EMERGENCY PHYSICIAN Emergency Medicine
PROC: 0DBK8ZX Excision of Ascending Colon, Via Natural or Artificial Opening Endoscopic, Diagnostic (ICD-10-PCS; 2024-02-10)
PROC: 0DBH8ZX Excision of Cecum, Via Natural or Artificial Opening Endoscopic, Diagnostic (ICD-10-PCS; 2024-02-10)
PROC: 0DBN8ZX Excision of Sigmoid Colon, Via Natural or Artificial Opening Endoscopic, Diagnostic (ICD-10-PCS; 2024-02-10)
DX: C61 Malignant neoplasm of prostate (principal); C79.51 Secondary malignant neoplasm of bone; N13.1 Hydronephrosis with ureteral stricture, not elsewhere classified; R31.9 Hematuria, unspecified; R59.9 Enlarged lymph nodes, unspecified; K21.9 Gastro-esophageal reflux disease without esophagitis; R03.0 Elevated blood-pressure reading, without diagnosis of hypertension; N20.0 Calculus of kidney; R97.20 Elevated prostate specific antigen [PSA]; D12.0 Benign neoplasm of cecum; D12.2 Benign neoplasm of ascending colon; I08.0 Rheumatic disorders of both mitral and aortic valves; D12.5 Benign neoplasm of sigmoid colon; K57.30 Diverticulosis of large intestine without perforation or abscess without bleeding; R33.9 Retention of urine, unspecified; Z12.11 Encounter for screening for malignant neoplasm of colon; Z87.442 Personal history of urinary calculi; Z91.040 Latex allergy status; Z79.51 Long term (current) use of inhaled steroids
CPT/HCPCS: 88305; 51702; 51798; 74176; 80048; 80053; 81003; 82378; 85025; 85027; 85610; 86301; 86304; 93005; 93306; 99285; G0103

== ENCOUNTER 2024-02-14 19:57 | Emergency (ER) | payer OTHER, SELFPAY ==
[2024-02-14 20:09] VITALS: BP 168/95
[2024-02-14 20:26] LABS: % Basophils 0.6 % (0-2); % Eosinophils 1.9 % (0-6); % Immature Granulocytes 0.5 % (0-0.5); % Lymphocytes 15.4 % (20.5-51.1); % Monocytes 8.8 % (1.7-9.3); % Neutrophils 72.8 % (42.2-75.2); Absolute Basophils 0.1 10^3/uL (0-0.2); Absolute Eosinophils 0.2 10^3/uL (0-0.7); Absolute Immature Granulocytes 0.1 10^3/uL (0-0.05); Absolute Lymphocytes 1.7 10^3/uL (1.2-3.4); Absolute Neutrophils 7.9 10^3/uL (1.4-6.5); Hematocrit 43.3 % (39.0-52.0); Hemoglobin 14.4 g/dL (13.0-18.0); Mean Corp Hgb Conc. 33.3 g/dL (33.0-37.0); Mean Corpuscular Hgb 29.8 pg (27.0-31.0); Mean Corpuscular Volume 89.5 fL (80.0-94.0); Mean Platelet Volume 9.4 fL (7.4-10.4); Nucleated Red Blood Cells % 0 % (-); Platelet Count 230 10^3/uL (130-400); Red Blood Cell Count 4.84 10^6/uL (4.70-6.10); Red Cell Dist. Width 12.7 % (11.5-14.5); White Blood Cell Count 10.9 10^3/uL (4.8-10.8)
[2024-02-14 20:28] LABS: Urine Albumin Negative (Neg - Trace); Urine Bilirubin Negative (Negative); Urine Character Clear (Clear); Urine Color Yellow; Urine Glucose Negative (Negative); Urine Ketone Trace (Negative); Urine Leukocyte Trace (Negative); Urine Nitrite Negative (Negative); Urine Occult Blood 1+ (Negative); Urine Urobilinogen Negative (Neg - 1+)
[2024-02-14 20:36] LABS: Urine Mucus Few; Urine Squamous Cell 0-2 /LPF (Few)
[2024-02-14 20:39] LABS: Urine Bacteria Few (Negative)
[2024-02-14 21:28] LABS: ALT (SGPT) 18 U/L (0-50); AST (SGOT) 27 U/L (17-59); Albumin 4.7 g/dl (3.5-5.0); Alkaline Phosphatase 104 U/L (38-126); Blood Urea Nitrogen 13 mg/dl (9-20); Calcium 9.8 mg/dl (8.4-10.2); Carbon Dioxide 28 mmol/L (22-30); Chloride 103 mmol/L (98-107); Glucose 109 mg/dl (70-99); Potassium 4.1 mmol/L (3.5-5.1); Sodium 139 mmol/L (135-145); Total Bilirubin 0.7 mg/dl (0.2-1.3); Total Protein 7.7 g/dl (6.3-8.2); eGFR > 60.00
--- NOTE | 2024-02-14 23:02 | ED.GENMED ---
History of Present Illness
General
Chief Complaint: Male Genito-Urinary Symptoms
Source: patient and spouse
Exam Limitations: none
Time Seen by Provider: 02/14/24 22:06
History of Present Illness
History of Present Illness:
Patient here primarily for inability to urinate. Catheter was removed this morning. Went back late this afternoon with 200+ cc. Returns tonight with ongoing pressure sensation. No fever or chills. History of prostate CA. In addition he has
been getting spasms of his upper back bilaterally over the last 3 to 4 days. Getting worse. However no chest pain shortness of breath pleuritic pain leg pain or leg swelling.
Past History
Past History
ED Past Medical History: Other (Kidney stones) and Other (Prostates CA)
ED Past Surgical History: and Urological (Ureteroscopy and stone removal)
Phy Exam
Physical Exam
Physical Exam:
GENERAL: Alert and oriented in no apparent distress
EYE: Orbits normal.
NECK: Supple
CARDIAC: Regular rate and rhythm without any obvious murmurs.
LUNGS: Clear breath sounds,normal
ABDOMEN: Soft, minimal suprapubic distention. No rebound or guarding no mass or hernia. Ultrasound 400 cc
NEUROLOGICAL: Alert and oriented , grossly non-focal
SKIN: Warm and dry, vesicular rash to the left upper back
MUSCULOSKELETAL: No edema,no deformity.Good color
PSYCH: Normal and appropriate interaction.
Course
Orders/Labs/Results
Orders:
Orders
02/14/24 20:13
Electrocardiogram (*1) Urgent
Reason for Study: Other
Other Reason for Exam: upper back pain
02/14/24 20:14
EKG- Treatment ONCE
02/14/24 20:20
CMP [Comprehensive Metabolic Panel] Urgent
Complete Blood Count/With Diff Urgent
Urinalysis Reflex To Culture Urgent
Date Specimen was Collected: 02/14/24
Time Specimen was Collected: 20:14
Urine Microscopic Reflex Cult Urgent
02/14/24 23:02
Famciclovir [Famvir] 500 mg PO NOW STA
Abnormal Lab Results
02/14/24
20:20
WBC 10.9 H 10^3/uL
(4.8-10.8)
Abs Immat Gran (auto) 0.1 H 10^3/uL
(0-0.05)
Absolute Neuts (auto) 7.9 H 10^3/uL
(1.4-6.5)
Absolute Monos (auto) 1.0 H 10^3/uL
(0.1-0.6)
Lymphocytes % 15.4 L %
(20.5-51.1)
Glucose 109 H mg/dl
(70-99)
Urine Ketones Trace A
(Negative)
Ur Occult Blood Reflex 1+ A
(Negative)
Leukocyte Esterase Rfl Trace A
(Negative)
Urine RBC 11-15 A /HPF
(0-2)
Urine Bacteria (Reflex) Few A
(Negative)
02/14/24 20:20
02/14/24 20:20
Vital Signs
Initial and Last Documented VS:
Initial Vital Signs
Temp Pulse Resp BP Pulse Ox
98.8 F 70 18 168/95 97
02/14/24 20:09 02/14/24 20:09 02/14/24 20:09 02/14/24 20:09 02/14/24 20:09
Last Documented Vital Signs
Temp Pulse Resp BP Pulse Ox
98.8 F 70 18 168/95 97
02/14/24 20:09 02/14/24 20:09 02/14/24 20:09 02/14/24 20:09 02/14/24 20:09
MDM/Problems Addressed
Differential Diagnosis Includes:
Urinary retention. Discussed straight cath versus Kat. Patient is seeing urology at 815 this morning. We will do a straight cath overnight. As for this spasm-like episode he had of his upper back. Highly doubt pulmonary emboli. No pleuritic
pain no shortness of breath no chest pain no leg pain or leg swelling. No hypoxia. Discussed with patient and spouse. This very likely may be from shingles. The rash is vesicular in the left upper back. In the general area of where his symptoms
are. Will treat with Famvir.
*Pulse Oximetry
Patient hypoxic: no
*Critical Care Note
Total Time (30-74mins, 75-104mins- exclusive of procedures): Not Applicable
Data Reviewed
Review of Other/Old Records Reveals: Labs, Records, Testing and Discharge Summary
ED Attending Note
-
Portions of this chart may have been created with voice recognition software.� Occasional wrong word or��sound alike� substitutions may have occurred due to the inherent limitations of voice recognition software.
Discharge Plan
Departure
Patient Disposition: Home (Routine Discharge)
Date of Disposition: 02/14/24
Time of Disposition: 23:05
Patient with high blood pressure during this ER visit?: Yes
Discharge Problem:
Urinary retention, History of prostate CA, Possible shingles rash
Instructions: Urinary Retention (DC), Shingles, BLOOD PRESSURE
Prescriptions:
New
famciclovir 500 mg tablet
500 mg PO Q8H 7 Days Qty: 21 0RF
No Action
famotidine 20 mg Tablet
20 mg PO DAILYPRN PRN (Reason: acid reflux)
ibuprofen [Motrin IB] 200 mg Tablet
400 mg PO Q8H PRN (Reason: mild pain)
fluticasone propionate 50 mcg/actuation [place],Suspension
2 spray INTRANASAL DAILYPRN PRN (Reason: congestion)
tamsulosin 0.4 mg Capsule
0.4 mg PO DAILY Qty: 30 0RF
bicalutamide 50 mg Tablet
50 mg PO DAILY Qty: 30 0RF
Referrals:
UNKNOWN - PT DOES,NOT KNOW [Family Provider] -
Activity Restrictions/Additional Instructions:
Follow-up with urology in the morning
Follow-up with your primary physician.
Return sooner with increasing back pain any pleuritic pain shortness of breath fever or any other concerning symptoms
Interventions
Interventions:
*Risk Screen - Suicide Last Done: 02/14/24 22:06
*General Assessment Last Done: 02/14/24 22:06
*Neglect/Abuse Screening Last Done: 02/14/24 22:06
ED- Fall Risk Assessment Last Done: 02/14/24 22:06
*ED COVID-19 Vaccine History Last Done: 02/14/24 22:06
ED-Male Genitourinary Assessment Last Done: 02/14/24 22:06
Discharge Date and Time
Print Language: [id number]
[2024-02-14] MEDS: LIDOCAINE URO-JET 2% 1 SYRINGE TOPICAL (23:15)
[2024-02-15 00:01] VITALS: BP 158/88
== END 2024-02-15 00:01 | disposition home or self-care (01) ==
LOC: EMR 19:57
PROVIDERS: EMERGENCY PHYSICIAN Emergency Medicine
DX: R33.9 Retention of urine, unspecified (principal); M62.830 Muscle spasm of back; R21 Rash and other nonspecific skin eruption; M54.6 Pain in thoracic spine; R03.0 Elevated blood-pressure reading, without diagnosis of hypertension; Z85.46 Personal history of malignant neoplasm of prostate; Z87.442 Personal history of urinary calculi; Z91.040 Latex allergy status
CPT/HCPCS: 99283; 51701; 51798; 80053; 81003; 81015; 85025; 93005

== ENCOUNTER → 2024-03-22 10:22 | Outpatient (REF) | payer OTHER, SELFPAY ==
[2024-03-22 12:45] LABS: % Basophils 0.8 % (0-2); % Eosinophils 1.7 % (0-6); % Lymphocytes 17.4 % (20.5-51.1); % Monocytes 8.5 % (1.7-9.3); % Neutrophils 69.6 % (42.2-75.2); Absolute Basophils 0.1 10^3/uL (0-0.2); Absolute Eosinophils 0.1 10^3/uL (0-0.7); Absolute Immature Granulocytes 0.1 10^3/uL (0-0.05); Absolute Lymphocytes 1.2 10^3/uL (1.2-3.4); Absolute Monocytes 0.6 10^3/uL (0.1-0.6); Absolute Neutrophils 4.6 10^3/uL (1.4-6.5); Hematocrit 44.1 % (39.0-52.0); Hemoglobin 15.4 g/dL (13.0-18.0); Mean Corp Hgb Conc. 34.9 g/dL (33.0-37.0); Mean Corpuscular Hgb 30.3 pg (27.0-31.0); Mean Corpuscular Volume 86.6 fL (80.0-94.0); Mean Platelet Volume 10.8 fL (7.4-10.4); Nucleated Red Blood Cells % 0 % (-); Platelet Count 237 10^3/uL (130-400); Red Blood Cell Count 5.09 10^6/uL (4.70-6.10); Red Cell Dist. Width 12.9 % (11.5-14.5); White Blood Cell Count 6.6 10^3/uL (4.8-10.8)
[2024-03-22 14:04] LABS: ALT (SGPT) 18 U/L (0-50); AST (SGOT) 22 U/L (17-59); Albumin 4.6 g/dl (3.5-5.0); Alkaline Phosphatase 212 U/L (38-126); Blood Urea Nitrogen 20 mg/dl (9-20); Carbon Dioxide 25 mmol/L (22-30); Chloride 107 mmol/L (98-107); Glucose 89 mg/dl (70-99); Potassium 4.6 mmol/L (3.5-5.1); Sodium 140 mmol/L (135-145); Total Bilirubin 0.6 mg/dl (0.2-1.3); Total Protein 7.4 g/dl (6.3-8.2); eGFR > 60.00
== END ==
LOC: RAD 10:22
PROVIDERS: ATTENDING PHYSICIAN Internal Medicine Hematology & Oncology
DX: C61 Malignant neoplasm of prostate (principal)
CPT/HCPCS: 36415; 73552; 80053; 84153; 85025

== ENCOUNTER → 2024-03-30 01:00 | Outpatient (REF) | payer OTHER, SELFPAY | LOC: REG 01:00 | PROVIDERS: ATTENDING PHYSICIAN Surgery | DX: C61 Malignant neoplasm of prostate (principal) | CPT/HCPCS: 88305 ==